=== PATIENT | female | born 1950 | race Hispanic/Latino ===

== ENCOUNTER 2016-11-25 08:34 | Outpatient (CLI) | payer MEDICARE ==
--- NOTE | 2016-11-25 10:13 | XRay Report ---
XRAY LEFT KNEE THREE VIEWS: 11/25/16 08:34:00 CLINICAL: Pain. FINDINGS: Mild osteopenia. Moderately severe osteoarthritis with the greatest involvement of the medial joint space and patellofemoral joint. Widening of the lateral joint space with large lateral osteophytes. No fracture or dislocation. No joint effusion. Normal soft tissues. IMPRESSION: Osteoarthritis. No joint effusion.
== END 2016-11-25 08:35 | disposition home or self-care (01) ==
LOC: SPVIMAG 08:34
PROVIDERS: ATTEND Internal Medicine
DX: M17.12 Unilateral primary osteoarthritis, left knee (principal); M70.52 Other bursitis of knee, left knee; M85.88 Other specified disorders of bone density and structure, other site